=== PATIENT | male | born 1970 | race Caucasian/White ===

== ENCOUNTER → 2022-11-25 11:55 | Outpatient (CLI) | payer BC, SELFPAY ==
--- NOTE | ~2022-11-25 | XR_ITS ---
XR lumbar spine 2-3V DATE: 11/25/2022 12:26 INDICATION: Low back pain TECHNIQUE: AP, lateral, coned lateral lumbosacral views COMPARISON: None FINDINGS: Mild rotatory dextroscoliosis of the lower thoracic and lumbar spine. Normal alignment of the lumbar spine. No fracture or bone destruction or spondylolisthesis. Mild to moderate degenerative disc disease at L1-2 and L3-4. The remaining lumbar and lumbosacral int erspaces appear well preserved. The sacroiliac joints are intact. IMPRESSION: Mild rotatory thoracolumbar dextro scoliosis Mild to moderate degenerative disc disease at L1-2 and L3-4 Reviewed, dictated and finalized at location B. SAWYER
== END ==
PROVIDERS: PCP Internal Medicine; Visit Provider Internal Medicine
DX: M54.50 Low back pain, unspecified (principal); M41.85 Other forms of scoliosis, thoracolumbar region; M51.36 Other intervertebral disc degeneration, lumbar region
CPT/HCPCS: 72100

== ENCOUNTER 2022-12-04 06:55 | Outpatient (CLI) | payer BC, SELFPAY ==
--- NOTE | ~2022-12-04 | MR_ITS ---
MRI of the lumbar spine Clinical History: Back pain Technique: Axial T2-weighted images, and sagittal T1-weighted, T2-weighted, and T2 fat-sat images wer e acquired. Findings: There is no fracture or sublocation of the lumbar spine. Vertebral bodies maintain normal h eight and alignment. No focal bone marrow signal abnormality seen in the lumbar spine. Partially imag ed probable intraosseous hemangioma noted at the T10 vertebral body. At L1-L2, there is no disc bulge or herniation. There is no spinal canal stenosis or neural foraminal narrowing. At L2-L3, there is no disc bulge or herniation. There is minimal facet joint hypertrophy. No spinal c anal stenosis or neural foraminal narrowing. At L3-L4, there is no disc bulge or herniation. There is mild facet arthropathy. No spinal canal sten osis or neural foraminal narrowing. At L4-L5, there is mild disc bulge and facet arthropathy. There is mild lateral recess stenosis bilat erally. Neural foramina are preserved. At L5-S1, there is no disc bulge or herniation. No spinal canal stenosis or neural foraminal narrowin g. Paravertebral soft tissues are unremarkable. Impression: Minimal degenerative spondylosis, as detailed above. Reviewed, dictated and finalized at location . [employer] Impression: Minimal degenerative spondylosis, as detailed above.
== END 2022-12-04 06:56 ==
LOC: MICIMG 06:56
PROVIDERS: PCP Internal Medicine; Visit Provider Internal Medicine
DX: M54.50 Low back pain, unspecified (principal); M43.06 Spondylolysis, lumbar region
CPT/HCPCS: 72148